=== PATIENT | female | born 1960 | race Caucasian/White ===

== ENCOUNTER 2017-06-19 12:59 | Observation (INO) | payer BC ==
[~2017-06-19] VITALS: Ht 165.1 cm; Wt 116.3 kg
[~2017-06-19 12:59] MED LIST: ADIPEX-P37.5 M1 PO; ADIPEX-P37.5 MG PO; ANAPROX275 M1 PO; ASPIR 8181 M1 PO; ASPIRIN325 MG PO; CINNAMON PLUS1 EACH PO; CIPRO500 MG PO; ECPIRIN325 M1 PO; EFFIENT10 MG PO; FOLIC ACID0.4 MG PO; FOLIC ACID1 MG PO; HYDROCODON-ACE1 EAC7 PO; IBUPROFEN800 MG PO; INDAPAMIDE2.5 MG PO; KLOR-CON M2020 MEQ PO; LASIX10 MG PO; LASIX40 MG PO; LASIX80 MG PO; LISINOPRIL20 MG PO; LITE COAT ASPI325 M1 PO; LOPRESSOR25 MG PO; LORTAB 5-325 M1 EACH PO; LOZOL2.5 MG PO; METFORMIN HCL500 MG PO; METHOTREXATE2.5 MG PO; METOPROLOL SUCC25 MG PO; MILLIPRED DP5 M1 PO; MOTRIN800 MG PO; NAPROXEN500 MG PO; NITROGLYCERIN0.4 MG SL; NITROSTAT0.4 MG SL; PRINIVIL10 MG PO; Protonix PO; SIMVASTATIN80 M1 G-TUBE; SIMVASTATIN80 M1 PO; SIMVASTATIN80 MG PO; SKELAXIN800 MG PO; Ultram PO; VICODIN,LORT1 TABLET PO; VITAMIN D-32000 UNI2 PO; XELJANZ5 MG PO; ZESTRIL,PRINIVI10 MG PO; ZOCOR80 MG PO
[2017-06-19 14:19] LABS: HEMATOCRIT 43.8 % (36.0-46.0); HEMOGLOBIN 15.1 G/DL (11.9-15.5); MCH 31.2 PG (29.0-34.0); MCHC 34.5 G/DL (30.0-36.0); MCV 90.5 FL (83-99); PLATELET COUNT 263 K/uL (156-360); RBC DIS.WIDTH-CV 12.9 % (11.8-14.6); RBC DIS.WIDTH-SD 42.6 % (39-53); RED BLOOD COUNT 4.84 M/uL (3.80-5.20); WHITE BLOOD COUNT 12.3 K/uL (4.1-10.2)
[2017-06-19 14:29] LABS: CHLORIDE 98 mEq/L (99-109); POTASSIUM 4.1 mEq/L (3.7-5.4); SODIUM 134 mEq/L (136-147)
[2017-06-19 14:31] LABS: GLUCOSE 307 mg/dL (70-99)
[2017-06-19 14:35] LABS: GFR ESTIMATE (CALCULATED) > 59 mL/min/
[2017-06-19 14:36] LABS: UREA NITROGEN (BUN) 17 mg/dL (9-23)
[2017-06-19 16:43] LABS: TROP-I INTERPRETATION NEGATIVE; TROPONIN-I 0.03 ng/mL (0.0-0.30)
[2017-06-19 17:53] LABS: TROP-I INTERPRETATION NEGATIVE; TROPONIN-I < 0.01 ng/mL (0.0-0.30)
[2017-06-19] MEDS ORDERED: LISINOPRIL20 MG PO (18:32)
[2017-06-19] MEDS ORDERED: LOPRESSOR25 MG PO (18:35)
[2017-06-19] MEDS ORDERED: AZITHROMYCIN250 MG PO (18:37)
[2017-06-19] MEDS ORDERED: METHYLPREDNISOLO4 M1 PO (18:39)
[2017-06-19] MEDS ORDERED: VIRTUSSIN AC L118 ML PO (18:40)
[2017-06-19] MEDS ORDERED: GLYBURIDE2.5 MG PO (18:41)
[2017-06-19] MEDS ORDERED: MILK THISTLE175 MG PO (18:42)
[2017-06-19 20:17] VITALS: BP 143/81
[2017-06-19 20:42] LABS: TROP-I INTERPRETATION NEGATIVE; TROPONIN-I < 0.01 ng/mL (0.0-0.30)
[2017-06-19 23:26] VITALS: BP 118/65
[2017-06-20 00:55] LABS: TROP-I INTERPRETATION NEGATIVE; TROPONIN-I < 0.01 ng/mL (0.0-0.30)
[2017-06-20 03:23] VITALS: BP 130/60
[2017-06-20 06:33] LABS: APPEARANCE SL.HAZY ((CLEAR)); BILIRUBIN NEGATIVE; BLOOD NEGATIVE; COLOR YELLOW ((YELLOW)); GLUCOSE (STRIP) >=500; KETONES NEGATIVE; LEUKOCYTES MODERATE; NITRITE NEGATIVE; PROTEIN (STRIP) NEGATIVE; SPECIFIC GRAVITY 1.029 (1.000-1.030)
[2017-06-20 06:54] LABS: BACTERIA RARE /HPF; EPITHELIAL CELLS 1+ /HPF; HYALINE CASTS 0-5 /LPF; MUCUS 1+ /LPF; WHITE BLOOD CELLS 40-50 /HPF (0-5)
[2017-06-20 09:14] VITALS: BP 137/60
[2017-06-20 09:29] LABS: HEMATOCRIT 41.7 % (36.0-46.0); HEMOGLOBIN 13.7 G/DL (11.9-15.5); MCH 30.3 PG (29.0-34.0); MCHC 32.9 G/DL (30.0-36.0); MCV 92.3 FL (83-99); PLATELET COUNT 227 K/uL (156-360); RBC DIS.WIDTH-CV 13.2 % (11.8-14.6); RBC DIS.WIDTH-SD 44.7 % (39-53); RED BLOOD COUNT 4.52 M/uL (3.80-5.20); WHITE BLOOD COUNT 7.6 K/uL (4.1-10.2)
[2017-06-20 09:42] LABS: CHLORIDE 97 MEQ/L (99-109); CREATININE 0.6 MG/DL (0.6-1.3); GFR ESTIMATE (CALCULATED) > 59 mL/min/; GLUCOSE 244 mg/dL (70-99); POTASSIUM 4.2 MEQ/L (3.7-5.4); SODIUM 133 MEQ/L (136-147); UREA NITROGEN (BUN) 16 mg/dL (9-23)
[2017-06-20] MEDS ORDERED: OSELTAMIVIR PHO75 MG PO (11:41)
[2017-06-20] MEDS ORDERED: CEFTIN500 MG PO (11:43)
[2017-06-20 11:44] VITALS: BP 161/82
[2017-06-21 09:40] LABS: HEMOGLOBIN A1c (GLYCOHEMOGLOB) 10.5 % (Below 5.7)
== END 2017-06-20 13:15 | disposition home or self-care (01) ==
LOC: EME 12:59 → EDOF 17:52 → ENRESERV 18:01 → 5WEST 19:57
PROVIDERS: Hospitalist; Physician Assistant; Physician Assistant Medical
DX: J10.1 Influenza due to other identified influenza virus with other respiratory manifestations (principal); R06.02 Shortness of breath; R05 Cough; N39.0 Urinary tract infection, site not specified; I10 Essential (primary) hypertension; I25.10 Atherosclerotic heart disease of native coronary artery without angina pectoris; E11.9 Type 2 diabetes mellitus without complications; G47.33 Obstructive sleep apnea (adult) (pediatric); M06.9 Rheumatoid arthritis, unspecified; E55.9 Vitamin D deficiency, unspecified; E53.8 Deficiency of other specified B group vitamins; E66.01 Morbid (severe) obesity due to excess calories; Z95.5 Presence of coronary angioplasty implant and graft; Z86.19 Personal history of other infectious and parasitic diseases; Z79.82 Long term (current) use of aspirin; Z83.3 Family history of diabetes mellitus; Z86.14 Personal history of Methicillin resistant Staphylococcus aureus infection
CPT/HCPCS: 71046; 80048; 81003; 82948; 83036; 84484; 85027; 87081; 87502; 87641; 93005; 94640; 99281; 99285; G0378

== ENCOUNTER 2017-07-16 12:05 | Emergency (ER) | payer BC ==
[~2017-07-16] VITALS: Ht 165.1 cm; Wt 116.5 kg
[~2017-07-16 12:05] MED LIST changes: +AZITHROMYCIN250 MG PO; +CEFTIN500 MG PO; +GLYBURIDE2.5 MG PO; +METHYLPREDNISOLO4 M1 PO; +MILK THISTLE175 MG PO; +OSELTAMIVIR PHO75 MG PO; +VIRTUSSIN AC L118 ML PO
[2017-07-16] MEDS ORDERED: HYDROXYCHLOROQ200 MG PO (13:27)
[2017-07-16 13:58] VITALS: BP 122/80
== END 2017-07-16 13:59 | disposition home or self-care (01) ==
LOC: EME 12:05
DX: M25.561 Pain in right knee (principal); I10 Essential (primary) hypertension; I25.2 Old myocardial infarction; K21.9 Gastro-esophageal reflux disease without esophagitis; Z86.14 Personal history of Methicillin resistant Staphylococcus aureus infection; I25.10 Atherosclerotic heart disease of native coronary artery without angina pectoris; M06.9 Rheumatoid arthritis, unspecified; Z79.84 Long term (current) use of oral hypoglycemic drugs; Z95.5 Presence of coronary angioplasty implant and graft; Z87.891 Personal history of nicotine dependence
CPT/HCPCS: 73564; 99281; 99283